=== PATIENT | female | born 1945 | race Caucasian/White ===

== ENCOUNTER → 2016-12-01 | Outpatient (CLI) | payer MEDICARE ==
[~2016-12-01] MED LIST: ACET-2151 PO; AMLO10TA82 PO; ASP81TEC PO; BENICAR/HCTZ; BIOT1TAB2 PO; CA C1TAB26 PO; CALC0.257 PO; FERR325T74 PO; FURO40TA4 PO; HYDR1TAB PO; LISI1TAB6 PO; LVT.05T PO; MAGN250T7 PO; MTP100TCR PO; MULT-608 PO; OMEP-10 PO; OXYC-12 PO; POTA10CA43 PO; TRAM50TA2 PO; TRAZ150T42 PO; TRM50T PO
--- OUTSIDE RECORDS SUMMARY | 2016-12-01 08:41 | XMS REPORT ---
Author LUZMARIA Wilson eClinicalWorks Address Unknown Phone Unavailable Care Team Providers Care Enterprise Cloud Architect Name Role Phone LUZMARIA ZHAO CP Unavailable Allergies, Adverse Reactions, Alerts Substance Reaction Event Type Hydrocodone-Acetaminophen Info Not Available Drug Allergy Problems Problem Type Condition Code Onset Dates Condition Status Assessment Encounter for dental examination Z01.20 Active Problem Encounter for dental examination Z01.20 Active Medications Medication Code System Code Instructions Start Date End Date Status Dosage Microzide [facility] [place] [address]-13 not defined Coreg [facility] [address]-80 not defined Norvasc [facility] [place] [address]-58 not defined Potassium Gluconate [facility] [place] [address] not defined Melatonin [facility] [place] [address] not defined Lisinopril [facility] [place] [address]-61 not defined Ultram [facility] [place] [address]-35 not defined Prilosec [facility] [place] [address]-06 not defined Zoloft [facility] [place] [address]-30 not defined Baclofen [facility] [place] [address]-26 not defined ASA NDC 0 not defined Synthroid [facility] [place] [address]-50 not defined Procedures Procedure Coding System Code Date INTRAORL-PERIAPICAL 1 FILM 59914 CPT-4 D0220 Sep 30, 2016 INTRAORL-PERIAPICAL EA ADD FILM CPT-4 D0230 Sep 30, 2016 COMP ORAL EVALUATION - NEW/EST PT CPT-4 D0150 Sep 30, 2016 TOPICAL FLUORIDE VARNISH CPT-4 D1206 Sep 30, 2016 BITEWINGS - FOUR FILMS CPT-4 D0274 Sep 30, 2016 INTRAORL-PERIAPICAL EA ADD FILM CPT-4 D0230 Sep 30, 2016 PROPHYLAXIS - ADULT CPT-4 D1110 Sep 30, 2016 PANORAMIC FILM SEE ALSO CODE 73396 CPT-4 D0330 Sep 30, 2016 Vital Signs Date/Time: Sep 30, 2016 Blood Pressure Diastolic 58 mmHg Blood Pressure Systolic 116 mmHg Cardiac Monitoring Heart Rate 62 bpm Results No Known Results Summary Purpose eClinicalWorks Submission
--- NOTE | 2016-12-02 08:48 | ECHOCARDIOGRAPHY REPORT ---
PROCEDURE PHYSICIAN: BERTO TAYLOR DATE OF PROCEDURE: 12/01/2016 TWO DIMENSIONAL ECHOCARDIOGRAM REPORT PRIMARY PHYSICIAN: OTHER PHYSICIAN: REFERRING PHYSICIAN: Dr. Bravo ORDERING PHYSICIAN: INDICATION FOR THE PROCEDURE: 1. Coronary artery disease. 2. Hypertension. MEASUREMENTS DERIVED VALUES LV DIAMETER (LAX) NORMALS NORMALS Diastolic 4.4 (3.6-5.2) Eject. Fract. 60% (60%+/-6%) Systolic (2.3-3.9) Diastolic Vol. % Shortening (0.22-0.42) Systolic Vol. Aortic Root IVS THICKNESS Diastolic 1.1 (0.6-1.1) LVPW THICKNESS Diastolic 1.1 (0.6-1.1) LA DIAMETER Systolic 3.9 (2.1-3.7) FINDINGS: 1. Technical quality is good. 2. The left ventricle is normal in size with normal contractility. Systolic function appeared to be normal. Estimated ejection fraction 60%. 3. The left atrium is normal in size. No clot or thrombus were seen within the left atrium. 4. The right atrium and right ventricle are normal in size. No clot or thrombus were seen within the right side. 5. The previously seen patent hackett ovale was not noted on this study. 6. Mitral valve is normal in morphology with mild mitral regurgitation noted by color Doppler flow. No mitral valve prolapse. No mitral valve stenosis. 7. Aortic valve is trileaflet with normal opening and closing pattern. No significant aortic stenosis or regurgitation was seen. 8. Tricuspid valve is normal in morphology with mild tricuspid regurgitation noted by color Doppler flow. Doppler across tricuspid valve estimated pulmonary artery pressure of 20+ right atrial pressure. 9. Pulmonic valve is functioning normally. 10. No pericardial effusion. IN CONCLUSION: 1. Normal left ventricular size and systolic function. Estimated ejection fraction 60%. 2. Mild mitral regurgitation. Mild tricuspid regurgitation. 3. Estimated pulmonary artery pressure of 25 to 30 mmHg. 4. The previously noted patent hackett ovale was not seen on this study. Job ID: [id number] Dictated Date: 12/01/2016 14:57:43 Power Nut Runner Operator Date: 12/02/2016 08:45:41 / alk
== END ==
LOC: CARD 08:37
PROVIDERS: ATTEND Physician Assistant
DX: I25.10 Atherosclerotic heart disease of native coronary artery without angina pectoris (principal); I10 Essential (primary) hypertension; E78.2 Mixed hyperlipidemia; I44.7 Left bundle-branch block, unspecified
CPT/HCPCS: 93306

== ENCOUNTER → 2017-10-18 | Outpatient (CLI) | payer MEDICARE ==
--- NOTE | 2017-10-18 16:02 | Diagnostic Imaging Report ---
PA and lateral views of the chest. INDICATION: Shortness of breath. FINDINGS: The lungs are clear. The heart size is normal. No effusion or pneumothorax. The mediastinum and anirudh appear unremarkable. IMPRESSION: Unremarkable exam. Dictated by: Dictated on workstation # [id number]
== END ==
LOC: RAD 15:38
PROVIDERS: ATTEND Nurse Practitioner Family
DX: R06.02 Shortness of breath (principal); R05 Cough
CPT/HCPCS: 71020

== ENCOUNTER → 2018-06-23 | Outpatient (CLI) | payer MEDICARE ==
--- NOTE | 2018-06-23 11:45 | Diagnostic Imaging Report ---
Indication: Osteoporosis screening. No prior studies are available for comparison. Bone mineral analysis of the lumbar spine and both hips was performed. Bone mineral density lumbar spine is 0.876 with T score -2.7. Bone mineral density left femoral neck 0.611 with T score -3.1. Bone mineral density right femoral neck 0.651 with T score -2.8. Impression: Findings consistent with osteoporosis of the lumbar spine and bilateral femoral necks. Dictated by: Dictated on workstation # [id number]
== END ==
LOC: RAD 09:13
PROVIDERS: ATTEND Nurse Practitioner Family
DX: Z13.820 Encounter for screening for osteoporosis (principal); M85.89 Other specified disorders of bone density and structure, multiple sites
CPT/HCPCS: 77080

== ENCOUNTER → 2018-07-25 | Outpatient (CLI) | payer MEDICARE ==
[~2018-07-25] MED LIST changes: +ALEN70TA47 PO; +CARV12.53 PO; +MELO15TA39 PO; +SERT100T8 PO
== END ==
LOC: CARD 10:59
PROVIDERS: ATTEND Physician Assistant
DX: I25.10 Atherosclerotic heart disease of native coronary artery without angina pectoris (principal); I12.9 Hypertensive chronic kidney disease with stage 1 through stage 4 chronic kidney disease, or unspecified chronic kidney disease; N18.9 Chronic kidney disease, unspecified; E78.5 Hyperlipidemia, unspecified; I44.7 Left bundle-branch block, unspecified; I08.1 Rheumatic disorders of both mitral and tricuspid valves
CPT/HCPCS: 93306

== ENCOUNTER → 2018-07-27 | Outpatient (CLI) | payer MEDICARE ==
[~2018-07-27] MED LIST changes: +CATHETER FLUSH 10 ML SYR IV PRN; +REGADENOSON 0.4 MG/5 ML SYR (LEXISCAN) IV ONE
[2018-07-27 10:02] VITALS: BP 184/72
[2018-07-27 10:06] VITALS: BP 196/101
--- NOTE | 2018-07-27 21:02 | STRESS TEST ---
DATE OF SERVICE: 07/27/2018 LEXISCAN MYOVIEW STRESS TEST REPORT REFERRING PHYSICIAN: [facility]. Baseline heart rate is 71. Baseline blood pressure is 182/73. Baseline EKG is sinus rhythm with no ischemic changes. In summary, the patient was injected with 10.99 mCi of technetium-99 Myoview and the resting images were obtained. Then, the patient received 0.4 mg of Lexiscan followed by 30.8 mCi of technetium-99 Myoview. Throughout the test, there were no EKG changes. The resting and stress images were reviewed and compared in the short axis, horizontal long axis, and vertical long axis views. Review of the images showed breast attenuation with mild reversible ischemia involving the mid to apical anterior wall and anterior septum. SSS is 9, SDS 7, TID value 0.98. On the gated images, the left ventricle appeared to be normal size with normal contractility. Calculated ejection fraction 71%. CONCLUSION: 1. The patient tolerated Lexiscan well. 2. Breast attenuation affecting the quality of the images with mild ischemia involving the mid to apical anterior wall and anterior septum. 3. Normal left ventricular size with normal contractility. Calculated ejection fraction is 71%. Job ID: [id number] DocumentID: [id number] Dictated Date: 07/27/2018 16:46:59 Aircraft Pilot Date: 07/27/2018 21:01:46 Dictated By: BERTO TAYLOR MD
== END ==
LOC: CARD 08:21
PROVIDERS: ATTEND Physician Assistant
DX: I25.10 Atherosclerotic heart disease of native coronary artery without angina pectoris (principal); I12.9 Hypertensive chronic kidney disease with stage 1 through stage 4 chronic kidney disease, or unspecified chronic kidney disease; N18.9 Chronic kidney disease, unspecified; E78.5 Hyperlipidemia, unspecified; I44.7 Left bundle-branch block, unspecified
CPT/HCPCS: 78452; 93017

== ENCOUNTER 2018-08-03 10:56 | Day surgery (SDC) | payer MEDICARE ==
[2018-08-03] VITALS (12 sets, daily range): BP systolic 42–191; BP diastolic 68–88
[~2018-08-03] VITALS: Ht 157.5 cm; Wt 73.9 kg
[~2018-08-03 10:56] MED LIST changes: -ALEN70TA47 PO; -CARV12.53 PO; -CATHETER FLUSH 10 ML SYR IV PRN; -MELO15TA39 PO; -REGADENOSON 0.4 MG/5 ML SYR (LEXISCAN) IV ONE; -SERT100T8 PO
--- OUTSIDE RECORDS SUMMARY | 2018-08-03 11:11 | XMS REPORT ---
Author Author ABRAHAN MORALES [facility] Address [address] [place] [address] Care Team Providers Care Field Evidence Technician Name Role Phone ABRAHAN MORALES Unavailable PROBLEMS Type Condition ICD9-CM Code [id number] Code Onset Dates Condition Status SNOMED Code Problem Encounter for dental examination Z01.20 Active [id number] ALLERGIES Unknown Allergies SOCIAL HISTORY No smoking Hx information available PLAN OF CARE VITAL SIGNS MEDICATIONS Unknown Medications RESULTS No Results PROCEDURES No Known procedures IMMUNIZATIONS No Known Immunizations
--- OUTSIDE RECORDS SUMMARY | 2018-08-03 11:11 | XMS REPORT ---
Author LUZMARIA Wilson eClinicalWorks Address Unknown Phone Unavailable Care Team Providers Care Reference Services Head Name Role Phone LUZMARIA ZHAO CP Unavailable Allergies, Adverse Reactions, Alerts Substance Reaction Event Type Hydrocodone-Acetaminophen Info Not Available Drug Allergy Problems Problem Type Condition Code Onset Dates Condition Status Assessment Encounter for dental examination Z01.20 Active Problem Encounter for dental examination Z01.20 Active Medications Medication Code System Code Instructions Start Date End Date Status Dosage Microzide [facility] [place] [address]-17 not defined Coreg [facility] [place] [address]-21 not defined Norvasc [facility] [place] [address]-81 not defined Potassium Gluconate [facility] [place] [address] not defined Melatonin [facility] [place] [address] not defined Lisinopril [facility] [place] [address]-60 not defined Ultram [facility] [place] [address]-81 not defined Prilosec [facility] [place] [address]-80 not defined Zoloft [facility] [place] [address]-05 not defined Baclofen [facility] [place] [address]-10 not defined ASA NDC 0 not defined Synthroid [facility] [place] [address]-19 not defined Procedures Procedure Coding System Code Date INTRAORL-PERIAPICAL 1 FILM 68235 CPT-4 D0220 Sep 30, 2016 INTRAORL-PERIAPICAL EA [...] 30, 2016 PANORAMIC FILM SEE ALSO CODE 76029 CPT-4 D0330 Sep 30, 2016 Vital Signs Date/Time: Sep 30, 2016 Blood Pressure Diastolic 58 mmHg Blood Pressure Systolic 116 mmHg Cardiac Monitoring Heart Rate 62 bpm Results No Known Results Summary Purpose eClinicalWorks Submission
--- OUTSIDE RECORDS SUMMARY | 2018-08-03 11:11 | XMS REPORT ---
Author Author LUZMARIA ZHAO Organization [facility] Address [address] [place] [address] Care Team Providers Care Sales Mgr Name Role Phone CECELUZMARIA Unavailable PROBLEMS Unknown Problems ALLERGIES Substance Reaction Event Type Date Status Percocet Unknown Drug Allergy Oct, Active ENCOUNTERS Encounter Location Date Diagnosis [facility] [address] [place] [phone] Oct, Encounter for dental examination Z01.20 [facility] [id number] [address] Oct, [facility] [address] [place] [phone] Sep, Encounter for dental examination Z01.20 IMMUNIZATIONS No Known Immunizations SOCIAL HISTORY Never Assessed REASON FOR VISIT prophy/colt PLAN OF CARE Activity Details Follow Up First Available Reason:Restorative VITAL SIGNS Heart Rate 63 bpm 2017-11-02 Blood pressure systolic 161 mmHg 2017-11-02 Blood pressure diastolic 71 mmHg 2017-11-02 MEDICATIONS Medication Instructions Dosage Frequency Start Date End Date Duration Status Coreg Active Prilosec Active Microzide Active Synthroid Active Potassium Gluconate Active Ultram Active Baclofen Active Norvasc Active Lisinopril Active Zoloft Active Melatonin Active ASA Active RESULTS No Results PROCEDURES Procedure Date Ordered Result Body Site PERIODIC ORAL EXAMINATION Nov 02, 2017 BITEWINGS - FOUR FILMS Nov 02, 2017 TOPICAL FLUORIDE VARNISH Nov 02, 2017 PROPHYLAXIS - ADULT Nov 02, 2017 INSTRUCTIONS MEDICATIONS ADMINISTERED No Known Medications MEDICAL (GENERAL) HISTORY Type Description Date Medical History High Blood Pressure Medical History HEart Disease Medical History COPD Medical History Thyroid issues Medical History Vertigo Medical History Anemia Medical History Skin Cancer Medical History Kidney Disease Medical History Surgery requiring rods, pins, srews Surgical History Double knee replacment Surgical History Rotator cuff surgery Surgical History Trigger finger Surgical History Cataract surgery Surgical History Hysterectomy Surgical History Appendix Hospitalization History Hospitalization for surgery only
--- OUTSIDE RECORDS SUMMARY | 2018-08-03 11:12 | XMS REPORT | Continuity of Care Document ---
Author Author [facility] Organization [facility] Address Unknown Phone Unavailable Allergies Active Description Code Type Severity Reaction Onset Reported/Identified Relationship to Patient Clinical Status Yes Penicillins [id number] Drug Allergy Moderate STOMACH PROBLEM 10/26/2012 Medications There is no data. Problems Date Dx Coded Attending Type Code Diagnosis Diagnosed By 10/26/2012 Ot 244.9 HYPOTHYROIDISM NOS 10/26/2012 Ot 285.9 ANEMIA NOS 10/26/2012 Ot 401.9 HYPERTENSION NOS 10/26/2012 Ot 496 CHR AIRWAY OBSTRUCT NEC 10/26/2012 Ot 726.0 ADHESIVE CAPSULIT SHLDER 10/26/2012 Ot 727.61 ROTATOR CUFF RUPTURE 10/26/2012 Ot 840.7 (SLAP) SUPERIOR GLENOID LABRUM LESIONS 10/26/2012 Ot V58.66 LONG-TERM ( CURRENT) USE OF ASPIRIN 10/26/2012 Ot V58.69 OTH MED,LT, CURRENT USE 12/14/2012 Ot 719.41 JOINT PAIN- SHLDER 12/14/2012 Ot V57.1 PHYSICAL THERAPY NEC 12/14/2012 Ot V58.49 OTHER SPECIFIED AFTERCARE FOLLOWING SURG 03/02/2016 STEPHANIE MCDANIEL Ot I10 ESSENTIAL (PRIMARY) HYPERTENSION 03/02/2016 STEPHANIE MCDANIEL Ot I25.10 ATHSCL HEART DISEASE OF [place] CORONARY 03/02/2016 STEPHANIE MCDANIEL Ot I44.7 LEFT BUNDLE-BRANCH BLOCK, UNSPECIFIED 03/02/2016 STEPHANIE MCDANIEL Ot R06.00 DYSPNEA, UNSPECIFIED 03/05/2016 STEPHANIE MCDANIEL Ot I10 ESSENTIAL (PRIMARY) HYPERTENSION 03/05/2016 STEPHANIE MCDANIEL Ot I25.10 ATHSCL HEART DISEASE OF [place] CORONARY 03/05/2016 STEPHANIE MCDANIEL Ot I44.7 LEFT BUNDLE-BRANCH BLOCK, UNSPECIFIED 03/05/2016 STEPHANIE MCDANIEL Ot R06.00 DYSPNEA, UNSPECIFIED 03/19/2016 STEPHANIE MCDANIEL Ot I10 ESSENTIAL (PRIMARY) HYPERTENSION 03/19/2016 STEPHANIE MCDANIEL Ot I25.10 ATHSCL HEART DISEASE OF [place] CORONARY 03/19/2016 STEPHANIE MCDANIEL Ot I44.7 LEFT BUNDLE-BRANCH BLOCK, UNSPECIFIED 03/19/2016 STEPHANIE MCDANIEL Ot R06.00 DYSPNEA, UNSPECIFIED 12/01/2016 Ot 719.47 JOINT PAIN- ANKLE 12/01/2016 Ot 729.5 PAIN IN LIMB 12/01/2016 Ot 585.3 CHRONIC KIDNEY DISEASE, STAGE III (MODER 12/01/2016 Ot 285.9 ANEMIA NOS 12/01/2016 Ot 403.90 HYPTNSV CHR KID DIS, UNSPEC, W CHR KD ST 12/01/2016 Ot 585.3 CHRONIC KIDNEY DISEASE, STAGE III (MODER 12/01/2016 Ot 716.90 ARTHROPATHY NOS-UNSPEC 12/01/2016 Ot 783.21 LOSS OF WEIGHT 12/01/2016 Ot 727.61 ROTATOR CUFF RUPTURE 12/01/2016 Ot V72.63 PRE- PROCEDURAL LABORATORY EXAMINATION 12/01/2016 Ot V72.81 EXAM-PRE- OPERATIVE CARDIOVASCULAR 12/01/2016 Ot V74.8 SCREEN- BACTERIAL DIS NEC 12/01/2016 STEPHANIE MCDANIEL Ot 272.4 HYPERLIPIDEMIA NEC/NOS 12/01/2016 STEPHANIE MCDANIEL Ot 397.0 TRICUSPID VALVE DISEASE 12/01/2016 STEPHANIE MCDANIEL Ot 401.9 HYPERTENSION NOS 12/01/2016 STEPHANIE MCDANIEL Ot 414.00 CORON ATHEROSCLER NOS TYPE VESSEL, NATIV 12/01/2016 STEPHANIE MCDANIEL Ot 424.0 MITRAL VALVE DISORDER 12/01/2016 STEPHANIE MCDANIEL Ot 786.50 CHEST PAIN NOS 12/01/2016 SAMINA OG FINISHING RANGE OPERATOR Ot 786.07 WHEEZING 12/01/2016 SAMINA OG FINISHING RANGE OPERATOR Ot 786.2 COUGH 12/01/2016 STEPHANIE MCDANIEL Ot I10 ESSENTIAL (PRIMARY) HYPERTENSION 12/01/2016 STEPHANIE MCDANIEL Ot I25.10 ATHSCL HEART DISEASE OF [place] CORONARY 12/01/2016 STEPHANIE MCDANIEL Ot I44.7 LEFT BUNDLE-BRANCH BLOCK, UNSPECIFIED 12/01/2016 STEPHANIE MCDANIEL Ot R06.00 DYSPNEA, UNSPECIFIED 12/02/2016 STEPHANIE MCDANIEL Ot E78.2 MIXED HYPERLIPIDEMIA 12/02/2016 STEPHANIE MCDANIEL Ot I10 ESSENTIAL (PRIMARY) HYPERTENSION 12/02/2016 STEPHANIE MCDANIEL Ot I25.10 ATHSCL HEART DISEASE OF [place] CORONARY 12/02/2016 STEPHANIE MCDANIEL Ot I44.7 LEFT BUNDLE-BRANCH BLOCK, UNSPECIFIED 12/22/2016 STEPHANIE MCDANIEL Ot E78.2 MIXED HYPERLIPIDEMIA 12/22/2016 STEPHANIE MCDANIEL Ot I10 ESSENTIAL (PRIMARY) HYPERTENSION 12/22/2016 STEPHANIE MCDANIEL Ot I25.10 ATHSCL HEART DISEASE OF [place] CORONARY 12/22/2016 STEPHANIE MCDANIEL Ot I44.7 LEFT BUNDLE-BRANCH BLOCK, UNSPECIFIED 10/19/2017 PETRA, YANIV R REUSE TECHNICIAN Ot R05 COUGH 10/19/2017 PETRA, YANIV R REUSE TECHNICIAN Ot R06.02 SHORTNESS OF BREATH 10/24/2017 PETRA, YANIV R REUSE TECHNICIAN Ot R05 COUGH 10/24/2017 PETRA, YANIV R REUSE TECHNICIAN Ot R06.02 SHORTNESS OF BREATH 11/10/2017 PETRA, YANIV R REUSE TECHNICIAN Ot R05 COUGH 11/10/2017 PETRA, YANIV R REUSE TECHNICIAN Ot R06.02 SHORTNESS OF BREATH 07/27/2018 STEPHANIE MCDANIEL Ot E78.5 HYPERLIPIDEMIA, UNSPECIFIED 07/27/2018 STEPHANIE MCDANIEL Ot I08.1 RHEUMATIC DISORDERS OF BOTH MITRAL AND T 07/27/2018 STEPHANIE MCDANIEL Ot I12.9 HYPERTENSIVE CHRONIC KIDNEY DISEASE W ST 07/27/2018 STEPHANIE MCDANIEL Ot I25.10 ATHSCL HEART DISEASE OF [place] CORONARY 07/27/2018 STEPHANIE MCDANIEL Ot I44.7 LEFT BUNDLE-BRANCH BLOCK, UNSPECIFIED 07/27/2018 STEPHANIE MCDANIEL Ot N18.9 CHRONIC KIDNEY DISEASE, UNSPECIFIED Procedures There is no data. Results Test Result Range Comprehensive Metabolic Panel - 03/26/17 09:38 Albumin 3.7 g/dL 3.6-5.1 ALP 69 U/L 35-130 ALT 14 U/L 6-45 Anion Gap 13 6-14 AST 16 U/L 2-40 BUN 11 mg/dL 5-25 Calcium 9.0 mg/dL 8.3-10.4 Chloride 108 mmol/L 95-114 CO2 26 mEq/L 22-33 Creat 1.09 mg/dL 0.50-1.50 eGFR 49 mL/min/1.73m2 >59 Globulin 2.7 g/dL 2.3-3.5 Glucose 91 mg/dL 70-110 Osmo 294 280-295 Potassium 4.2 mmol/L 3.5-5.3 Sodium 143 mmol/L 134-148 TBil 0.4 mg/dL 0.2-1.2 TP 6.4 g/dL 6.0-8.3 Lipid Panel - 03/26/17 09:38 C/HDL 3.0 3.7-6.7 Cholesterol 101 mg/dL 100-240 HDL 34 mg/dL 30-85 LDL-Calculated 55 mg/dL 0-100 Trig 59 mg/dL 35-160 VLDL 12 mg/dL 0-42 Free T4 - 04/09/17 09:44 Free T4 1.05 ng/dL 0.81-1.61 Thyroid Stimulating Hormone - 04/09/17 09:44 TSH 1.53 mIU/mL 0.32-5.00 Lipid Panel - 04/06/18 08:23 C/HDL 3.6 3.7-6.7 Cholesterol 105 mg/dL 100-240 HDL 29 mg/dL 30-85 LDL-Calculated 61 mg/dL 0-100 Trig 77 mg/dL 35-160 VLDL 15 mg/dL 0-42 PDM - TRAMADOL - 07/15/18 11:17 Prescribed Drug 1 Tramadol NRG COMMENT NRG Desmethyltramadol 3678 ng/mL <100 medMATCH Desmethyltram CONSISTENT NRG Tramadol 72821 ng/mL <100 medMATCH Tramadol CONSISTENT NRG Encounters ACCT No. Visit Date/Time Discharge Status Pt. Type Provider Facility Loc./Unit Complaint [id number] 07/27/2018 08:21:00 07/27/2018 23:59:59 CLS Preadmit STEPHANIE MCDANIEL [facility] CARD I25.10 CAD [id number] 07/25/2018 10:59:00 07/25/2018 23:59:59 CLS Outpatient STEPHANIE MCDANIEL [facility] CARD I25.10 CAD [id number] 07/07/2018 14:53:00 07/07/2018 23:59:59 CLS Outpatient STEPHANIE MCDANIEL [facility] RAD DYSPNEA [id number] 10/18/2017 15:38:00 10/18/2017 23:59:59 CLS Outpatient PETRA YANIV R REUSE TECHNICIAN [facility] RAD R05, R06.02 [id number] 12/01/2016 08:37:00 12/01/2016 23:59:59 CLS Outpatient STEPHANIE MCDANIEL [facility] CARD CAD,HTN, LBBB [id number] 02/28/2016 11:47:00 02/28/2016 23:59:59 CLS Outpatient STEPHANEI MCDANIEL [facility] CARD CAD,HTN, DYSPNEA [id number] 01/23/2014 09:40:00 01/23/2014 23:59:59 CLS Outpatient SAMINA OG [facility] RAD COUGH,WHEEZING [id number] 12/20/2013 13:40:00 12/20/2013 23:59:59 CLS Outpatient STEPHANIE MCDANIEL [facility] CARD CAD,CP, DYSPNEA [id number] 08/03/2018 13:00:00 PEN Preadmit CLAUDIA SOLIS, BERTO Wolf [facility] ABN STRESS TEST [id number] 12/01/2016 08:37:00 Document Registration [id number] 12/08/2012 13:37:00 Document Registration [id number] 10/26/2012 06:00:00 Document Registration [id number] 10/21/2012 10:01:00 Document Registration [id number] 08/17/2011 08:38:00 Document Registration [id number] 08/13/2011 13:47:00 Document Registration [id number] 03/25/2010 10:24:00 Document Registration [id number] 11/02/2017 15:00:00 11/02/2017 23:59:59 CLS [facility] [id number] 07/15/2018 10:00:00 Document Registration 06/09/10 07/04/2018 09:50:17 07/04/2018 23:59:59 CLS Outpatient Candice Bravo [id number] 05/20/2018 09:37:00 05/20/2018 23:59:00 DIS Outpatient Candice Bravo [id number] 04/06/2018 08:21:00 04/06/2018 23:59:00 DIS Outpatient BERTO TAYLOR [id number] 05/31/2017 09:23:00 05/31/2017 23:59:00 DIS Outpatient Candice Bravo [id number] 04/09/2017 09:39:00 04/09/2017 23:59:00 DIS Outpatient Candice Bravo [id number] 03/26/2017 09:32:00 03/26/2017 23:59:00 DIS Outpatient BERTO TAYLOR
[2018-08-03] MEDS ORDERED: NS IV 1000 ML 1,000 ML IV SCH ×2 (11:22→12:54)
[2018-08-03] MEDS ORDERED: LIDOCAINE 1% INJ 20 ML 20 ML VIAL ONE (11:22)
[2018-08-03] MEDS ORDERED: NS IV 1000 ML 1,000 ML ONE (11:23)
[2018-08-03] MEDS ORDERED: HEParin (CATH LAB) 2,000 ML IV ONE (11:23)
[2018-08-03] MEDS ORDERED: fentaNYL INJECTION 100 MCG/2 ML AMP ONE (11:44)
[2018-08-03] MEDS ORDERED: MIDAZOLAM 5 MG/5 ML (VERSED) VIAL ONE (11:44)
[2018-08-03] MEDS ORDERED: HEParin 1000 UNIT/ML (10ML VIAL) FOR BOLUS ONE (11:44)
[2018-08-03 11:48] LABS: BILIRUBIN,URINE NEGATIVE (NEGATIVE); CLARITY,URINE CLEAR; COLOR,URINE YELLOW; GLUCOSE, URINE (UA) NEGATIVE (NEGATIVE); HEMOGLOBIN 12.7 G/DL (11.5-16.0); KETONES,URINE NEGATIVE (NEGATIVE); LEUKOCYTE ESTERASE ,URINE 2+ (NEGATIVE); MEAN PLATELET VOLUME 9.5 FL (7.4-10.4); NITRITE,URINE POSITIVE (NEGATIVE); PH,URINE 6.5 (5-9); PROTEIN,URINE NEGATIVE (NEGATIVE); RED BLOOD COUNT 4.19 10^6/uL (4.35-5.85); RED CELL DISTRIBUTION WIDTH 13.3 % (10.0-14.5); UROBILINOGEN,URINE NORMAL (NORMAL); WHITE BLOOD COUNT 9.4 10^3/uL (4.3-11.0)
[2018-08-03 11:59] LABS: BACTERIA,URINE MODERATE /HPF; WBC,URINE 25-50 /HPF
[2018-08-03] MEDS ORDERED: FLU QUADRIvalent (5+ YOA) 2018-2019 (AFLURIA) 0.5 ML IM ONE (12:00)
[2018-08-03 12:01] LABS: PROTHROMBIN TIME PATIENT 13.3 SEC (12.2-14.7)
[2018-08-03 12:10] LABS: ALBUMIN 3.9 GM/DL (3.2-4.5); BILIRUBIN,TOTAL 0.6 MG/DL (0.1-1.0); CALCIUM 8.7 MG/DL (8.5-10.1); CREATININE SERUM 1.05 MG/DL (0.60-1.30); TOTAL PROTEIN 6.8 GM/DL (6.4-8.2)
[2018-08-03] MEDS ORDERED: ALEN70TA47 PO (12:17)
[2018-08-03] MEDS ORDERED: SERT100T8 PO (12:17)
[2018-08-03] MEDS ORDERED: CARV12.53 PO (12:17)
[2018-08-03] MEDS ORDERED: MELO15TA39 PO (12:17)
--- NOTE | 2018-08-03 12:43 | Cardiac Procedure Note-CS/ASA ---
Pre-Procedure Note Pre-Op Procedure Note H&P Reviewed The H&P was reviewed, patient examined and no changes noted. Date H&P Reviewed: Aug 03, 2018 Time H&P Reviewed: 12:42 Conscious Sedation Pre-Proced Time Reviewed: 12:43 ASA Class: 3 Airway Mallampati Classification: ([place] appropriate class) I. II. III, IV Lungs Heart ASA score ASA 1: a normal healthy patient ASA 2: a patient with a mild systemic disease (mid diabetes, controlled hypertension, obesity x ASA 3: a patient with a severe systemic disease that limits activity (angina , COPD, prior Myocardial infarction) ASA 4: a patient with an incapacitating disease that is a constant threat to life (CHF, renal failure) ASA 5: a moribund patient not expected to survive 24 hrs. (ruptured aneurysm) ASA 6: a declared brain patient whose organs are being harvested. For emergent operations, add the letter E after the classification Grade 3 Sedation Plan: Analgesia, Amnesia, Plan communicated to team members, Discussed options with patient/fam, Discussed risks with patient/fam Note The patient is an appropriate candidate to undergo the planned procedure, sedation, and anesthesia. The patient immediately re-assessed prior to indication. BERTO TAYLOR MD Aug 03, 2018 12:43
--- NOTE | 2018-08-03 12:57 | Cardiac Cath Report ---
Cardiac Cath Report Physician (s)/Food Service Team Member (s) Physician BERTO TAYLOR MD Pre-Procedure Diagnosis Pre-Procedure Diagnosis: Coronary artery disease Post-Procedure Note Procedure Start Date: Aug 03, 2018 Name of Procedure: Left heart catheterization Findings/Procedure Note PROCEDURE NOTE: After explaining the procedure to the patient, all pros and cons were explained , all questions were answered. The patient signed the consent and then she was placed on the cardiac catheterization laboratory. Groin was prepped SL fashion local anesthesia was used. Sheath placed in the right femoral artery. Fernando right and left catheter were used to access the coronary system. Pigtail was used to access the left ventricular cavity. Left ventriculogram was not done, pressure was measured At the end of the procedure the sheath was removed. 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 Calcified coronary system with mild disease at the LAD system, nonobstructive disease 2. 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 Normal left ventricular end-diastolic pressure DISCUSSION AND RECOMMENDATION: Medical therapy is recommended Anesthesia Type: Conscious Sedation Estimated blood loss (mL): 20 ml Contrast Amount: 45 ml Total Radiation Dose: 201 mGy Post-Procedure Diagnosis Post-operative diagnosis: Chest pain Coronary artery disease Hypertension Hyperlipidemia BERTO TAYLOR MD Aug 03, 2018 12:57 pm
--- NOTE | 2018-08-03 12:59 | Discharge Inst-Post CATH ---
Discharge Inst-CATH Post Cardiac Cath D/C Inst Follow Up/Plan Appointment with Dr. Jones's office in 2-4 weeks CARDIAC CATH DISCHARGE INSTRUCTIONS *Hold Metformin for 48 hours post heart cath. ACTIVITY * Go Home directly and rest. * Limit activity of the leg (or wrist if it was used) for 7 days including aerobics, swimming, jogging, bicycling, etc. * Restrict stair-climbing for 7 days if possible, if not, climb up with your non -cath leg, then bring together on the same step. * Avoid lifting, pushing, pulling or excessive movement of the affected extremity for 7 days. * Customary sexual activity may be resumed after 2 days-use caution not to use a position that strains or causes pain to the affected extremity. * No driving for 24 hours. * NO SMOKING. * Avoid straining for bowel movements for 7 days. * Gentle walking on level ground is allowed. * Returning to work will depend on the type of procedure and the results. Your doctor will discuss this with you. CALL YOUR DOCTOR FOR ANY OF THE FOLLOWING: *If bleeding from the puncture site occurs- Apply gentle pressure to site with clean cloth and call your doctor or EMS. * If a knot or lump forms under the skin, increases in size, or causes pain. * If bruising appears to be worsening or moving further down your leg instead of disappearing. * Temperature above 101 F. CARE OF YOUR GROIN INCISION; * Bruising or purple discoloration of the skin near the puncture site is common. * You may shower only, no bathtub bathing for 5 days. Be careful to avoid slipping as your leg may feel stiff. * If a closure device was used on your femoral artery, please see the attached guide regarding care of the device and your leg. * REMOVE the dressing from your groin the next day after your procedure in the shower. CARE OF YOUR WRIST INCISION; * Bruising or purple discoloration of the skin near the puncture site is common. * You may shower. * DO NOT submerge wrist. * Remove dressing in 24 hours. BERTO OJNES MD Aug 03, 2018 12:59 pm
[2018-08-03] MEDS ORDERED: PATIENT MAY USE OWN MEDS, ALL PO SCH (13:00)
--- NOTE | 2018-08-03 13:03 | Diagnostic Imaging Report ---
INDICATION: Pre-heart catheterization. Patient had normal stress test and dyspnea. TIME OF EXAMINATION: 11:45 a.m. COMPARISON: Correlation is made with prior study from 07/07/2018. FINDINGS: The heart size is normal. The pulmonary vascularity is unremarkable. The lungs are clear. No infiltrate, effusion or pneumothorax is detected. IMPRESSION: No acute cardiopulmonary process is detected. Dictated by: Dictated on workstation # [id number]
== END 2018-08-03 17:30 | disposition home or self-care (01) ==
LOC: CATH 10:56 → SDC 13:14 → CATH 17:30
PROVIDERS: ATTEND Internal Medicine Cardiovascular Disease
DX: R07.9 Chest pain, unspecified (principal); I25.10 Atherosclerotic heart disease of native coronary artery without angina pectoris; I12.9 Hypertensive chronic kidney disease with stage 1 through stage 4 chronic kidney disease, or unspecified chronic kidney disease; E78.5 Hyperlipidemia, unspecified; N18.9 Chronic kidney disease, unspecified; I65.29 Occlusion and stenosis of unspecified carotid artery; R06.00 Dyspnea, unspecified; E03.9 Hypothyroidism, unspecified; K21.9 Gastro-esophageal reflux disease without esophagitis; I44.7 Left bundle-branch block, unspecified; Z79.899 Other long term (current) drug therapy
CPT/HCPCS: 36415; 36430; 71045; 80053; 80061; 81000; 85027; 85610; 85730; 87077; 87081; 87088; 87186; 93458

== ENCOUNTER → 2020-03-19 | Outpatient (CLI) | payer MEDICARE ==
[~2020-03-19] MED LIST changes: +ALEN70TA5 PO; +CARV12.53 PO; +MELO15TA39 PO; +SERT100T8 PO
--- NOTE | 2020-03-19 09:53 | Diagnostic Imaging Report ---
INDICATION: Hypertension, chronic renal disease TECHNIQUE: Multiple real-time grayscale sonographic images, color and duplex Doppler images were obtained of the urinary system. FINDINGS: Aortic velocity: 92 cm/sec. RIGHT kidney: Size: 10.1 x 4.1 x 4.8 cm The right renal parenchyma and collecting system appear unremarkable. The right renal artery is visualized in its proximal, mid and distal aspect. Maximum renal artery velocity: 92cm/sec Maximum renal artery/aortic ratio: 1.0 LEFT kidney: Size: 9.1 x 3.6 x 3.7 cm The left renal parenchyma and collecting system appear unremarkable. The left renal artery is visualized in its proximal, mid and distal aspect. Maximum renal artery velocity: 91cm/sec Maximum renal artery/aortic ratio: 0.99 Bladder: Not imaged. IMPRESSION: 1. Unremarkable renal ultrasound with doppler. (RA/AO ratios > 3.0 may suggest potential hemodynamically significant stenosis.) Dictated by: Dictated on workstation # [id number]
== END ==
LOC: RAD 08:40
PROVIDERS: ATTEND Nurse Practitioner
DX: I12.0 Hypertensive chronic kidney disease with stage 5 chronic kidney disease or end stage renal disease (principal); N18.3 Chronic kidney disease, stage 3 (moderate); R60.9 Edema, unspecified; E78.5 Hyperlipidemia, unspecified
CPT/HCPCS: 76770; 93975

== ENCOUNTER 2020-08-23 13:00 | Emergency (ER) | payer MEDICARE ==
[~2020-08-23] VITALS: Ht 157 cm; Wt 79.3 kg
[2020-08-23] MEDS ORDERED: methylPREDNISolone 125 MG (Solu-MEDROL) VIAL IV STA (13:33)
[2020-08-23] MEDS ORDERED: RT-ALBUTEROL/IPRATROPIUM 3 ML (DUONEB) VIAL INH ONE (13:45)
--- NOTE | 2020-08-23 13:45 | ED Cough/URI ---
General Chief Complaint: Respiratory Problems Stated Complaint: COUGH;SHORTNESS OF BREATH;HEADACHE;GENERAL WEAKNES History of Present Illness Date Seen by Provider: Aug 23, 2020 Time Seen by Provider: 13:43 Initial Comments 75-year-old female presents with cough 3 days with shortness of breath. Patient has a known history of COPD. Patient tried her inhalers with minimal relief over the last couple days. She has some generalized weakness maybe a mild headache. She has no fever, nausea, vomiting, loss of sense of taste or smell. She has no known COVID contacts. Patient denies any chest pain. Allergies and Home Medications Allergies Coded Allergies: No Known Drug Allergies (Unverified , 08/23/20) Home Medications Alendronate Sodium 70 Mg Tablet, 70 MG PO WEEK, (Reported) Amlodipine Besylate 10 Mg Tablet, 1 EACH PO DAILY, (Reported) Aspirin 81 Mg Tabec, 81 MG PO DAILY, (Reported) Ca Cmb No.1/Vit D3/B-6/Fa/B12 1 Each Tablet, 1 EACH PO DAILY, (Reported) Carvedilol 12.5 Mg Tablet, 12.5 MG PO BID, (Reported) Hctz/Lisinopril 1 Each Tablet, 1 EACH PO DAILY, (Reported) Levothyroxine Sodium 50 Mcg Tab, 50 MCG PO DAILY, (Reported) Meloxicam 15 Mg Tablet, 15 MG PO DAILY, (Reported) Omeprazole 20 Mg Capsule.dr, 40 MG PO DAILY, (Reported) Potassium Chloride 10 Meq Capsule.sa, 1 EACH PO DAILY, (Reported) Sertraline HCl 100 Mg Tablet, 100 MG PO BID, (Reported) Tramadol Hcl 50 Mg Tablet, 50 MG PO TID, (Reported) Trazodone Hcl 150 Mg Tablet, 0.5 TAB PO HS, (Reported) Patient Home Medication List Home Medication List Reviewed: Yes Review of Systems Review of Systems Constitutional: No chills, No fever; weakness Respiratory: cough, short of breath Cardiovascular: No chest pain, No palpitations Gastrointestinal: No abdominal pain, No nausea, No vomiting Genitourinary: no symptoms reported Musculoskeletal: no symptoms reported Skin: no symptoms reported Psychiatric/Neurological: Headache Past Acllazg-Vhdtxl-Fkrsgi Hx Past Med/Social Hx: Reviewed Nursing Past Med/Soc Hx Patient Social History Type Used: Cigarettes Former Smoker, Quit: Aug 03, 1995 Recent Foreign Travel: No Contact w/Someone Who Travel: No Immunizations Up To Date Date of Pneumonia Vaccine: Oct 26, 2011 Date of Influenza Vaccine: Jul 27, 2012 Past Medical History COPD Reproductive Disorders: No Renal Failure Gastroesophageal Reflux, Ulcer Physical Exam Vital Signs - First Documented 08/23/20 13:44 Temp 36.9 Pulse 74 Resp 16 B/P (MAP) 159/76 (103) Pulse Ox 94 O2 Delivery Room Air Capillary Refill : Height: 5'2.00" Weight: 163lbs. 0.0oz. 73.194329fo; 29.8 BMI Method: General Appearance: no apparent distress Respiratory: no respiratory distress, no accessory muscle use, decreased breath sounds (moderate diffuse) Cardiovascular: normal peripheral pulses, regular rate, rhythm Gastrointestinal: non tender, soft Extremities: normal range of motion Neurologic/Psychiatric: alert, normal mood/affect, oriented x 3 Skin: normal color, warm/dry Progress/Results/Core Measures Suspected Sepsis SIRS Temperature: Pulse: Respiratory Rate: Laboratory Tests 08/23/20 13:40: White Blood Count 14.6H Blood Pressure / Mean: Laboratory Tests 08/23/20 13:40: Creatinine 1.44H, Platelet Count 298 Results/Orders Lab Results Laboratory Tests Test 08/23/20 13:40 Range/Units White Blood Count 14.6 H 4.3-11.0 10^3/uL Red Blood Count 4.01 3.80-5.11 10^6/uL Hemoglobin 12.2 11.5-16.0 g/dL Hematocrit 38 35-52 % Mean Corpuscular Volume 95 80-99 fL Mean Corpuscular Hemoglobin 30 25-34 pg Mean Corpuscular Hemoglobin Concent 32 32-36 g/dL Red Cell Distribution Width 12.8 10.0-14.5 % Platelet Count 298 130-400 10^3/uL Mean Platelet Volume 9.8 9.0-12.2 fL Immature Granulocyte % (Auto) 0 % Neutrophils (%) (Auto) 81 H 42-75 % Lymphocytes (%) (Auto) 10 L 12-44 % Monocytes (%) (Auto) 8 0-12 % Eosinophils (%) (Auto) 1 0-10 % Basophils (%) (Auto) 1 0-10 % Neutrophils # (Auto) 11.8 H 1.8-7.8 10^3/uL Lymphocytes # (Auto) 1.4 1.0-4.0 10^3/uL Monocytes # (Auto) 1.2 H 0.0-1.0 10^3/uL Eosinophils # (Auto) 0.1 0.0-0.3 10^3/uL Basophils # (Auto) 0.1 0.0-0.1 10^3/uL Immature Granulocyte # (Auto) 0.0 0.0-0.1 10^3/uL Neutrophils % (Manual) 87 % Lymphocytes % (Manual) 9 % Monocytes % (Manual) 3 % Eosinophils % (Manual) 1 % Basophils % (Manual) 0 % Band Neutrophils 0 % Blood Morphology Comment NORMAL Sodium Level 138 135-145 MMOL/L Potassium Level 3.4 L 3.6-5.0 MMOL/L Chloride Level 107 98-107 MMOL/L Carbon Dioxide Level 20 L 21-32 MMOL/L Anion Gap 11 5-14 MMOL/L Blood Urea Nitrogen 24 H 7-18 MG/DL Creatinine 1.44 H 0.60-1.30 MG/DL Estimat Glomerular Filtration Rate 35 BUN/Creatinine Ratio 17 Glucose Level 120 H 70-105 MG/DL Calcium Level 8.6 8.5-10.1 MG/DL B-Type Natriuretic Peptide 25.0 <100.0 PG/ML My Orders Orders - CORDOVA,KIM L DO Basic Metabolic Panel (08/23/20 13:33) Cbc With Automated Diff (08/23/20 13:33) Albuterol/Ipra Inhalation Soln (Duoneb I (08/23/20 13:45) Methylprednisolone Sod Succ (Solu-Medrol (08/23/20 13:33) Chest 1 View, Ap/Pa Only (08/23/20 13:33) Svn Small Volume Nebulizer (08/23/20 13:33) BNP (08/23/20 13:33) Rx-Albuterol Inhaler (Rx-Ventolin Hfa) (08/23/20 14:00) Manual Differential (08/23/20 13:40) Vital Signs/I&O 08/23/20 13:44 Temp 36.9 Pulse 74 Resp 16 B/P (MAP) 159/76 (103) Pulse Ox 94 O2 Delivery Room Air Capillary Refill : Progress Note : Time: 14:51 Progress Note She reports feeling better following treatment. Patient with likely a COPD exacerbation with her known COPD. I will prescribe her prednisone and azithromycin. Patient is stable and does not require any oxygen. Patient will be discharged home in stable condition Diagnostic Imaging Diagonstic Imaging: Xray Plain Films/CT/US/NM/MRI: chest Comments [facility] [place], [place] NAME: SAMMY SAL [facility] REC#: [id number] PT STATUS: REG ER : 1945 PHYSICIAN: KIM CORDOVA DO ADMIT DATE: 08/23/20/ER Draft Date of Exam:08/23/20 CHEST 1 VIEW, AP/PA ONLY INDICATION: Shortness of breath. TIME OF EXAM: 1:57 PM CORRELATION is made with prior exam from 08/03/2018. The heart size is normal. The pulmonary vascularity is unremarkable. The lungs are clear. No infiltrate, effusion or pneumothorax is detected. IMPRESSION: No acute cardiopulmonary process is detected. Departure Impression Primary Impression: COPD (chronic obstructive pulmonary disease) with acute bronchitis Disposition: 01 HOME, SELF-CARE Condition: Stable Departure-Patient Inst. Referrals: [facility] [place] (PCP) Primary Care Physician SAMMY WALSH APRN (Family) Primary Care Physician Patient Instructions: Chronic Obstructive Pulmonary Disease (COPD) (DC), Exacerbation of COPD (DC) Add. Discharge Instructions: Follow-up with your primary care provider in 2-3 days for recheck of today symptoms All discharge instructions reviewed with patient and/or family. Voiced understanding. Scripts Prednisone (Prednisone) 20 Mg Tab 40 MG PO DAILY, #6 TAB 0 Refills Prov: KIM CORDOVA DO 08/23/20 Azithromycin (Azithromycin) 250 Mg Tablet 250 MG PO UD, #6 TAB TAKE 2 TABLETS ON DAY ONE THEN TAKE 1 TABLET DAILY FOR FOUR MORE DAYS Prov: KIM CORDOVA DO 08/23/20 KIM CORDOVA DO Aug 23, 2020 13:45
[2020-08-23 13:54] LABS: POTASSIUM 3.4 MMOL/L (3.6-5.0)
[2020-08-23 13:55] LABS: CALCIUM 8.6 MG/DL (8.5-10.1)
[2020-08-23 13:58] LABS: BASOPHILS # (AUTO) 0.1 10^3/uL (0.0-0.1); BASOPHILS % (AUTO) 1 % (0-10); EOSINOPHILS # (AUTO) 0.1 10^3/uL (0.0-0.3); EOSINOPHILS % (AUTO) 1 % (0-10); HEMATOCRIT 38 % (35-52); HEMOGLOBIN 12.2 g/dL (11.5-16.0); LYMPHOCYTES # (AUTO) 1.4 10^3/uL (1.0-4.0); LYMPHOCYTES % (AUTO) 10 % (12-44); MEAN CORPUSCULAR HEMOGLOBIN 30 pg (25-34); MEAN CORPUSCULAR HGB CONC 32 g/dL (32-36); MEAN CORPUSCULAR VOLUME 95 fL (80-99); MEAN PLATELET VOLUME 9.8 fL (9.0-12.2); MONOCYTES # (AUTO) 1.2 10^3/uL (0.0-1.0); MONOCYTES % (AUTO) 8 % (0-12); NEUTROPHILS # (AUTO) 11.8 10^3/uL (1.8-7.8); NEUTROPHILS % (AUTO) 81 % (42-75); PLATELET COUNT 298 10^3/uL (130-400); WHITE BLOOD COUNT 14.6 10^3/uL (4.3-11.0)
[2020-08-23 13:59] LABS: CREATININE SERUM 1.44 MG/DL (0.60-1.30)
[2020-08-23] MEDS ORDERED: RX-ALBUTEROL INHALER (VENTOLIN HFA) 18 GM IH STA (14:00)
--- NOTE | 2020-08-23 14:14 | Diagnostic Imaging Report ---
INDICATION: Shortness of breath. TIME OF EXAM: 1:57 PM CORRELATION is made with prior exam from 08/03/2018. The heart size is normal. The pulmonary vascularity is unremarkable. The lungs are clear. No infiltrate, effusion or pneumothorax is detected. IMPRESSION: No acute cardiopulmonary process is detected. Dictated by: Dictated on workstation # [id number]
[2020-08-23 14:36] LABS: BAND NEUTROPHILS 0 %; BASOPHILS % (MANUAL) 0 %; EOSINOPHILS % (MANUAL) 1 %; LYMPHOCYTES % (MANUAL) 9 %; MONOCYTES % (MANUAL) 3 %; NEUTROPHILS % (MANUAL) 87 %; RBC MORPH NORMAL
[2020-08-23] MEDS ORDERED: AZIT250T12 PO (14:53)
[2020-08-23] MEDS ORDERED: PRD20T PO (14:53)
[2020-08-23 15:13] VITALS: BP 146/68
== END 2020-08-23 15:13 | disposition home or self-care (01) ==
LOC: EDUNIT# 13:00 → ER 13:03
DX: J44.0 Chronic obstructive pulmonary disease with (acute) lower respiratory infection (principal); J20.9 Acute bronchitis, unspecified; K21.9 Gastro-esophageal reflux disease without esophagitis; Z79.82 Long term (current) use of aspirin; Z87.891 Personal history of nicotine dependence
CPT/HCPCS: 36415; 71045; 80048; 83880; 85007; 85027

== ENCOUNTER → 2021-10-23 | Outpatient (CLI) | payer MEDICARE ==
[~2021-10-23] MED LIST changes: -ALEN70TA5 PO; +ALEN70TA80 PO; +AZIT250T12 PO; +PRD20T PO; +SERT-414 PO; -SERT100T8 PO
== END ==
LOC: CARD 10:30
PROVIDERS: ATTEND Physician Assistant
DX: I35.8 Other nonrheumatic aortic valve disorders (principal); I11.9 Hypertensive heart disease without heart failure; I25.10 Atherosclerotic heart disease of native coronary artery without angina pectoris
CPT/HCPCS: 93306

== ENCOUNTER → 2022-04-30 | Outpatient (CLI) | payer MEDICARE ==
--- NOTE | 2022-04-30 11:46 | Diagnostic Imaging Report ---
INDICATION: Chronic renal disease. Bilateral renal sonography performed in the routine fashion, including renal artery Doppler. COMPARISON: 03/19/2020 The right kidney measured 10.1 x 4.7 x 5.1 cm. The left kidney measured 10.6 x 3.9 x 3.8 cm. Both kidneys showed no hydronephrosis or mass. There is a small cyst in the right kidney centrally measuring 1.4 x 1.2 x 1.1 cm. There is a small cyst in the left kidney in the upper pole measuring 1.4 x 0.9 x 0.8 cm. Urinary bladder showed initial volume of 73 mL with postvoid residual of 4 mL. Renal artery Doppler demonstrates normal renal artery velocities and ratios on both sides with no sonographic evidence of renal artery stenosis. IMPRESSION: Normal sized kidneys bilaterally with no hydronephrosis or mass. There are small cysts in each kidney. Renal artery Doppler demonstrates no evidence of significant renal artery stenosis. Dictated by: Dictated on workstation # [id number]
== END ==
LOC: RAD 08:15
PROVIDERS: ATTEND Nurse Practitioner
DX: N28.1 Cyst of kidney, acquired (principal); I12.9 Hypertensive chronic kidney disease with stage 1 through stage 4 chronic kidney disease, or unspecified chronic kidney disease; N18.32 Chronic kidney disease, stage 3b
CPT/HCPCS: 76770; 93975

== ENCOUNTER 2022-11-11 11:10 | Emergency (ER) | payer MEDICARE ==
[~2022-11-11] VITALS: Ht 158 cm; Wt 79.4 kg
--- NOTE | 2022-11-11 11:57 | ED Neck-Back Pain/Injury ---
General Chief Complaint: Head/Cervical Problems Stated Complaint: NECK PAIN Nursing Triage Note: PT TO ED IN BY POV WITH C/O NECK PAIN X 1 WK AND TINGLING THROUGH ENTIRE BODY X 2 WEEKS. DENIES INJURY. PT HAS TRIED TAKING HYDROCODONE FOR PAIN WITH SOME RELIEF. Source of Information: Patient Exam Limitations: No Limitations History of Present Illness Date Seen by Provider: Nov 11, 2022 Time Seen by Provider: 11:45 Initial Comments 77-year-old female presents with bilateral neck pain x1 week. Patient denies any injuries or falls. Denies any recent illnesses. Patient reports pain radiates to left shoulder. Describes pain as sharp. Patient also reports tingling all over her body which started approximately 2 weeks ago. Timing/Duration: 1 Week Severity: Moderate Pain/Injury Location: Neck Radiation: Other (left shoulder) Associated Symptoms: No fever; tingling in legs/feet, other (tingling all over) Allergies and Home Medications Allergies Coded Allergies: acetaminophen (Verified Allergy, Intermediate, RASH, 11/11/22) oxycodone (Verified Allergy, Intermediate, RASH, 11/11/22) Patient Home Medication List Home Medication List Reviewed: Yes Alendronate Sodium (Alendronate Sodium) 70 Mg Tablet, 70 MG PO WEEK, (Reported) Entered as Reported by: PARMJIT WILD on 08/03/18 1217 Amlodipine Besylate (Norvasc Tablet) 10 Mg Tablet, 1 EACH PO DAILY, (Reported) Entered as Reported by: TETE ROSALES on 10/21/12 1050 Aspirin (Aspirin Ec 81 Mg) 81 Mg Tabec, 81 MG PO DAILY, (Reported) Entered as Reported by: TETE ROSALES on 10/21/12 1050 Azithromycin (Azithromycin) 250 Mg Tablet, 250 MG PO UD Prescribed by: KIM CORDOVA on 08/23/20 1453 Ca Cmb No.1/Vit D3/B-6/Fa/B12 (Vitamin D3 1,000 Unit Tablet) 1 Each Tablet, 1 EACH PO DAILY, (Reported) Entered as Reported by: TETE ROSALES on 10/21/12 1050 Carvedilol (Carvedilol) 12.5 Mg Tablet, 12.5 MG PO BID, (Reported) Entered as Reported by: PARMJIT WILD on 08/03/18 1217 Hctz/Lisinopril (Lisinopril-Hctz 10-12.5 Mg Tab) 1 Each Tablet, 1 EACH PO DAILY, (Reported) Entered as Reported by: TETE ROSALES on 10/21/12 1050 Levothyroxine Sodium (Levothroid) 50 Mcg Tab, 50 MCG PO DAILY, (Reported) Entered as Reported by: BRITTNEY MANCILLA on 03/25/10 1527 Meloxicam (Meloxicam) 15 Mg Tablet, 15 MG PO DAILY, (Reported) Entered as Reported by: PARMJIT WILD on 08/03/18 1217 Omeprazole (Prilosec 20 Mg) 20 Mg Capsule.dr, 40 MG PO DAILY, (Reported) Entered as Reported by: BRITTNEY MANCILLA on 03/25/10 1527 Potassium Chloride (Potassium Chloride 10 Meq Cap) 10 Meq Capsule.sa, 1 EACH PO DAILY, (Reported) Entered as Reported by: TETE ROSALES on 10/21/12 1050 Prednisone (Prednisone) 20 Mg Tab, 40 MG PO DAILY Prescribed by: KIM CORDOVA on 08/23/20 1453 Prednisone (Prednisone) 20 Mg Tab, 20 MG PO BID Prescribed by: Sugar Armendariz on 11/11/22 1247 Sertraline HCl (Sertraline HCl) 100 Mg Tablet, 100 MG PO BID, (Reported) Entered as Reported by: PARMJIT WILD on 08/03/18 1217 Tramadol Hcl (Tramadol Hcl) 50 Mg Tablet, 50 MG PO TID, (Reported) Entered as Reported by: TETE ROSALES on 10/21/12 1050 Trazodone Hcl (Trazodone Hcl) 150 Mg Tablet, 0.5 TAB PO HS, (Reported) Entered as Reported by: TETE ROSALES on 10/21/12 1050 Review of Systems Constitutional: no symptoms reported Respiratory: no symptoms reported Cardiovascular: no symptoms reported Musculoskeletal: muscle pain, muscle stiffness, neck pain Past Xbdbocz-Vrerzw-Gxqqvj Hx Patient Social History Tobacco Use?: No Use of E-Cig and/or Vaping dev: No Substance use?: No Alcohol Use?: No Pt feels they are or have been: No Immunizations Up To Date Influenza Vaccine Up-to-Date: No; Not Current First/Initial COVID19 Vaccinat: 2020 Past Medical History Surgery/Hospitalization HX: CKD, CHF, HTN, COPD Surgeries: Yes (gastric bypass, bilateral knee replacement) Appendectomy, Hysterectomy Respiratory: Yes COPD Cardiac: Yes (LBBB) Hypertension Neurological: No Reproductive Disorders: No Genitourinary: Yes Renal Failure Gastrointestinal: Yes (HX INTESTINAL BYPASS) Gastroesophageal Reflux, Ulcer Musculoskeletal: Yes (BELGICA. TKR) Endocrine: Yes Hypothyroidsim Psychosocial: No Integumentary: No Blood Disorders: No Physical Exam Vital Signs Vital Signs - First Documented 11/11/22 11:25 Temp 36.9 Pulse 77 Resp 16 B/P (MAP) 101/63 (76) Pulse Ox 91 O2 Delivery Room Air Capillary Refill : Less Than 3 Seconds Height, Weight, BMI Height: 5'2.00" Weight: 163lbs. 0.0oz. 73.248858xm; 31.00 BMI Method: General Appearance: WD/WN, Mild Distress Neck: Limited Range of Motion, Tender Lateral, Tender Midline Cardiovascular: Regular Rate, Rhythm, No Edema, No Gallop, No JVD, No Murmur Respiratory: Lungs Clear, Normal Breath Sounds, No Accessory Muscle Use, No Respiratory Distress Extremity: Normal Inspection, Normal Range of Motion Neurologic/Psychiatric: Alert, Oriented x3, Normal Mood/Affect Skin: Normal Color, Warm/Dry Progress/Results/Core Measures Results/Orders My Orders Orders - SUGAR ARMENDARIZ APRN Ekg Tracing (11/11/22 11:51) Ct Cervical Spine Wo (11/11/22 11:51) Ketorolac Injection (Toradol Injection) (11/11/22 12:00) Orphenadrine Inj (Ed Only) (Norflex Inje (11/11/22 12:00) Prednisone Tablet (Deltasone Tablet) (11/11/22 12:45) Medications Given in ED Current Medications Medications Dose Ordered Sig/Shirley Route Start Time Stop Time Status Last Admin Dose Admin Ketorolac Tromethamine 30 mg ONCE ONCE IM 11/11/22 12:00 11/11/22 12:01 DC 11/11/22 12:29 30 MG Orphenadrine Citrate 60 mg ONCE ONCE IM 11/11/22 12:00 11/11/22 12:01 DC 11/11/22 12:35 60 MG Vital Signs/I&O 11/11/22 11:25 Temp 36.9 Pulse 77 Resp 16 B/P (MAP) 101/63 (76) Pulse Ox 91 O2 Delivery Room Air Blood Pressure Mean: 76 Progress Progress Note #1: Time: 11:50 Progress Note Patient seen and evaluated. Pain in neck likely related to musculoskeletal issue. CT scan of neck ordered. Pain radiates to left shoulder will obtain EKG to rule out cardiac involvement. Toradol and Norflex ordered for pain. Progress Note #2: Time: 12:42 Progress Note Discussed results with patient. Informed patient that she will need to follow- up with her primary care provider for a MRI of her neck. Discussed return precautions with patient. Discussed prescription for prednisone. Initial ECG Impression Date: Nov 11, 2022 Initial ECG Impression Time: 12:25 Initial ECG Rate: 73 Initial ECG Rhythm: Normal Sinus Initial ECG Intervals: Normal Initial ECG Impression: Nonspecific Changes Diagnostic Imaging Diagonstic Imaging: CT Plain Films/CT/US/NM/MRI: c-spine Comments Date of Exam:11/11/22 CT CERVICAL SPINE WO PROCEDURE: CT cervical spine without contrast. TECHNIQUE: Multiple contiguous axial images were obtained through the cervical spine without the use of intravenous contrast. Sagittal and coronal reformations were then performed. Auto Exposure Controls were utilized during the CT exam to meet ALARA standards for radiation dose reduction. INDICATION: Neck pain. Tingling in entire body. COMPARISON: None. FINDINGS: Grade 1 anterolisthesis of C4 on C5, C5 on C6, and C6 on C7. Vertebral body heights are preserved. No fractures. Jgmb-bo-myqpebtj spondylotic changes are greatest at the atlantoaxial articulation. No definite high-grade spinal canal stenosis is evident by CT. There is likely multilevel high-grade neural foraminal narrowing, greatest on the left at C3-C7. Moderate atherosclerotic calcifications in the carotid bifurcations. Indeterminate left thyroid nodule measuring up to 1.4 cm. The lung apices are clear where seen. IMPRESSION: 1. No acute CT findings in the cervical spine. 2. Spondylotic changes likely result in multilevel high-grade neural foraminal narrowing, greater on the left. No high-grade spinal canal stenosis is evident by CT. This could be further investigated with MRI. Dictated on workstation # [id number] Dict: 11/11/22 1212 Trans: 11/11/22 1220 [id number] Interpreted by: CHADWICK AVILA MD Electronically signed by: Departure Impression Primary Impression: Radiculopathy Additional Impression: Neck pain Disposition: 01 HOME, SELF-CARE Condition: Stable Departure-Patient Inst. Decision time for Depature: 12:44 Referrals: [facility] [place] (PCP/Family) Primary Care Physician Patient Instructions: Radiculopathy (DC), Neck Pain Add. Discharge Instructions: Follow-up with primary care provider to schedule an MRI. Take prednisone as prescribed with food. Return for any new or concerning symptoms, difficulty walking, incontinence of bowel and bladder. All discharge instructions reviewed with patient and/or family. Voiced understanding. Scripts Prednisone (Prednisone) 20 Mg Tab 20 MG PO BID for 5 Days, #9 TAB 0 Refills Take 3 tabs(60mg)daily, decrease by 1/2 tab(10mg)daily. Prov: SUGAR ARMENDARIZ APRN 11/11/22 SUGAR ARMENDARIZ APRN Nov 11, 2022 11:57
[2022-11-11] MEDS ORDERED: ORPHENADRINE 60 MG/2 ML (NORFLEX) AMP (ED ONLY) IM ONE (12:00)
[2022-11-11] MEDS ORDERED: KETOROLAC 30 MG/ML VIAL IM ONE (12:00)
--- NOTE | 2022-11-11 12:20 | Diagnostic Imaging Report ---
PROCEDURE: CT cervical spine without contrast. TECHNIQUE: Multiple contiguous axial images were obtained through the cervical spine without the use of intravenous contrast. Sagittal and coronal reformations were then performed. Auto Exposure Controls were utilized during the CT exam to meet ALARA standards for radiation dose reduction. INDICATION: Neck pain. Tingling in entire body. COMPARISON: None. FINDINGS: Grade 1 anterolisthesis of C4 on C5, C5 on C6, and C6 on C7. Vertebral body heights are preserved. No fractures. Iose-hy-bldefcgn spondylotic changes are greatest at the atlantoaxial articulation. No definite high-grade spinal canal stenosis is evident by CT. There is likely multilevel high-grade neural foraminal narrowing, greatest on the left at C3-C7. Moderate atherosclerotic calcifications in the carotid bifurcations. Indeterminate left thyroid nodule measuring up to 1.4 cm. The lung apices are clear where seen. IMPRESSION: 1. No acute CT findings in the cervical spine. 2. Spondylotic changes likely result in multilevel high-grade neural foraminal narrowing, greater on the left. No high-grade spinal canal stenosis is evident by CT. This could be further investigated with MRI. Dictated by: Dictated on workstation # [id number]
[2022-11-11] MEDS ORDERED: predniSONE 20 MG TAB PO ONE (12:45)
[2022-11-11] MEDS ORDERED: PRD20T PO (12:47)
[2022-11-11 13:13] VITALS: BP 146/72
== END 2022-11-11 13:13 | disposition home or self-care (01) ==
LOC: EDUNIT# 11:10 → ER 11:12
DX: M54.12 Radiculopathy, cervical region (principal); Z88.6 Allergy status to analgesic agent; Z28.311 Partially vaccinated for COVID-19
CPT/HCPCS: 72125; 93005

== ENCOUNTER → 2023-06-16 | Outpatient (CLI) | payer MEDICARE ==
[~2023-06-16] MED LIST changes: +RT-ALBUTEROL SULF 2.5 MG/3 ML PRE-MIX VIAL INH ONE
== END ==
LOC: RT 13:00
PROVIDERS: ATTEND Nurse Practitioner Family
DX: J44.9 Chronic obstructive pulmonary disease, unspecified (principal)
CPT/HCPCS: 94060; 94726; 94729